=== PATIENT | male | born 1955 | race Caucasian/White ===

== ENCOUNTER 2019-03-15 10:40 | Emergency (ER) | payer OTHER ==
[~2019-03-15] VITALS: Ht 185.4 cm; Wt 100.0 kg
[~2019-03-15 10:40] MED LIST: METH750T87 PO; MIRT15TA94 PO; OXYC10TA6 PO; TADA5TAB2 PO; TEMA15CA PO
--- NOTE | 2019-03-15 11:28 | NUR ---
Pt to room from lobby.
[2019-03-15 11:44] LABS: BASOPHILS # (AUTO) 0.02 x10^3/uL (0-0.1); BASOPHILS % (AUTO) 0 % (0-1); EOSINOPHILS # (AUTO) 0.41 x10^3/uL (0-0.4); EOSINOPHILS % (AUTO) 6 % (1-7); LYMPHOCYTES # (AUTO) 1.07 x10^3/uL (1-3.4); LYMPHOCYTES % (AUTO) 15 % (22-44); MD NO; MEAN CORPUSCULAR HEMOGLOBIN 31.3 pg (27.5-34.5); MEAN CORPUSCULAR HGB CONC 33.3 g/dL (33.2-36.2); MEAN PLATELET VOLUME 7.5 fL (7.4-10.4); MONOCYTES # (AUTO) 0.53 x10^3/uL (0.2-0.8); MONOCYTES % (AUTO) 7 % (2-9); NEUTROPHILS # (AUTO) 5.33 x10^3/uL (1.8-6.8); NEUTROPHILS % (AUTO) 73 % (42-75); PLATELET COUNT 321 x10^3/uL (130-400); RED BLOOD COUNT 4.97 x10^6/uL (4.38-5.82); RED CELL DISTRIBUTION WIDTH 13.8 % (9.4-14.8)
--- NOTE | 2019-03-15 11:48 | NUR ---
DR MARTINEZ BS
[2019-03-15 11:52] LABS: ALANINE AMINOTRANSFERASE 47 U/L (12-78); ALBUMIN 3.6 g/dL (3.4-5.0); ANION GAP 9 mmol/L (5-15); CALCIUM 8.4 mg/dL (8.5-10.1); CHLORIDE 109 mmol/L (98-107); CREATININE 0.86 mg/dL (0.7-1.3)
[2019-03-15 11:54] LABS: ALKALINE PHOSPHATASE 71 U/L (45-117); BILIRUBIN,TOTAL 0.3 mg/dL (0.2-1.0); TOTAL PROTEIN 6.9 g/dL (6.4-8.2)
[2019-03-15] MEDS ORDERED: ALBUTEROL/IPRATROPIUM 2.5MG/0.5MG, 3 ML NPPB ONE ×2 (12:00→15:00)
[2019-03-15] MEDS ORDERED: SODIUM CHLORIDE FLUSH 10ML SYR IVF ONE (12:00)
--- NOTE | 2019-03-15 12:04 | NUR ---
PT STATES HE'S HERE FOR PNEUMONIA,"LUNG PROBLEMS FOR THE LAST 2 MONTHS". DX DX'D W/ PNEUMONIA IN JANUARY. HAS TRIED MULTIPLE COURSES OF ANTIBIOTICS & PREDNISONE. HAS USED HIS PROAIR & SYMBICORT. RESP LABORED. PRODUCTIVE COUGH. LS: TIGHT W/ EXP WHEEZES ALL MORGAN. IBUPROFEN LAST NOC, NONE TODAY. LAST ORAL INTAKE: 0800 TODAY. NEBULIZER USED AT 0800, PROAIR - LAST USE "A FEW MINUTES AGO". SPOUSE IN ROOM.
[2019-03-15] MEDS ORDERED: BUDE10.2 INH (12:21)
[2019-03-15] MEDS ORDERED: ALBU90AE INH (12:21)
[2019-03-15] MEDS ORDERED: ALBUTEROL/IPRATROPIUM 2.5MG/0.5MG, 3 ML ONE ×2 (12:48→15:19)
--- NOTE | 2019-03-15 13:07 | NUR ---
CALLED CT: PER TECH, PT IS NEXT ON THE LIST. WILL NOTIFY PT.
[2019-03-15] MEDS ORDERED: OMNIPAQUE 350 MG/ML, 100ML BOTTLE ONE (13:36)
--- NOTE | 2019-03-15 14:39 | NUR ---
DR MARTINEZ BS
--- NOTE | 2019-03-15 15:21 | NUR ---
DR MARTINEZ NOTIFIED OF MISSED PREDNISONE ADMINISTRATION. PREDNISONE GIVEN. RESP TECH NOW AT BS. PT VERY TALKATIVE. SPOUSE IN ROOM
--- NOTE | 2019-03-15 16:21 | NUR ---
PT AMBULATED IN ROOM TO MONITOR RA PULSE OX. 92-95% PT REPORTS HE HAS A HOUSE ADMIN APPT ON .
--- NOTE | 2019-03-15 16:57 | NUR ---
THIS FLOAT RN AT BEDSIDE TO DC PT FOR PRIMARY, JEFF YO. PT AND SPOUSE VERBALIZED UNDERSTANDING TO DC INSTRUCTIONS. WHEELED TO CHECKOUT FOR COMFORT. AMBUALTORY C STEADY GAIT.
[2019-03-15 16:59] VITALS: BP 126/79
== END 2019-03-15 17:01 | disposition home or self-care (01) ==
LOC: ED 16:40
DX: J98.01 Acute bronchospasm (principal); K21.9 Gastro-esophageal reflux disease without esophagitis; G89.29 Other chronic pain; Z87.891 Personal history of nicotine dependence
CPT/HCPCS: 36415; 71275; 80053; 85025; 93005; 94640; 99284; J7512; J7620; Q9967

== ENCOUNTER 2019-04-25 12:20 | Outpatient (CLI) | payer OTHER ==
[~2019-04-25 12:20] MED LIST changes: +ALBU90AE INH; +BUDE10.2 INH
[2019-04-25 12:37] LABS: BASOPHILS # (AUTO) 0.01 x10^3/uL (0-0.1); BASOPHILS % (AUTO) 0 % (0-1); EOSINOPHILS % (AUTO) 0 % (1-7); LYMPHOCYTES # (AUTO) 0.69 x10^3/uL (1-3.4); LYMPHOCYTES % (AUTO) 7 % (22-44); MD NO; MEAN CORPUSCULAR HEMOGLOBIN 31.8 pg (27.5-34.5); MEAN CORPUSCULAR HGB CONC 33.6 g/dL (33.2-36.2); MEAN CORPUSCULAR VOLUME 94.9 fL (81-97); MEAN PLATELET VOLUME 6.9 fL (7.4-10.4); MONOCYTES # (AUTO) 0.86 x10^3/uL (0.2-0.8); MONOCYTES % (AUTO) 9 % (2-9); NEUTROPHILS # (AUTO) 7.75 x10^3/uL (1.8-6.8); NEUTROPHILS % (AUTO) 83 % (42-75); PLATELET COUNT 377 x10^3/uL (130-400); RED BLOOD COUNT 4.97 x10^6/uL (4.38-5.82)
== END 2019-04-25 23:59 | disposition home or self-care (01) ==
LOC: LAB 12:20
PROVIDERS: ATTEND Internal Medicine
DX: G47.33 Obstructive sleep apnea (adult) (pediatric) (principal)
CPT/HCPCS: 36415; 82785; 85025; 86606